=== PATIENT | female | born 2000 | race Caucasian/White ===

== ENCOUNTER → 2019-03-22 11:01 | Outpatient (CLI) | payer MEDICAID, SELFPAY ==
--- NOTE | 2019-03-22 11:07 | US_ITS ---
US transvaginal HISTORY: Irregular periods, skipping periods, bilateral pelvic pain ITS.REASON: anovulation ORDERING PHYSICIAN: Kali Platt MD PATIENT AGE: 18 years Comparison: None FINDINGS: The uterus is 4.6 x 2.6 x 3.4 cm with a combined endometrial thickness of 8 mm. There are small nabothian cysts present. No uterine mass apparent. The left ovary is 3.9 x 3.5 cm containing small follicles. The right ovary is 3.6 x 4.2 cm containing multiple small follicles.. The ovarian volume on the left is 14 sq cm and on the right 13 sq cm No cul-de-sac fluid evident. IMPRESSION: Multiple small bilateral ovarian follicles with slightly enlarged ovaries which may be seen with polycystic ovarian syndrome. Please correlate clinically
[2019-03-22 13:26] LABS: Thyroid Stimulating Hormone 2.33 uIU/ml (0.516-4.13)
[2019-03-23 08:17] LABS: DHEA-Sulfate 328.3 ug/dL (110.0-431.7)
[2019-03-23 16:25] LABS: LH 13.7 mIU/mL (.)
[2019-03-24 17:48] LABS: Testosterone,Free 4.6 pg/mL (0.0-4.2)
== END ==
PROVIDERS: PCP Family Medicine; Visit Provider Obstetrics & Gynecology
DX: N97.0 Female infertility associated with anovulation (principal); E28.2 Polycystic ovarian syndrome
CPT/HCPCS: 36415; 76830; 82626; 83002; 84402; 84443